=== PATIENT | male | born 1980 | race Caucasian/White ===

== ENCOUNTER 2016-11-11 07:29 | Day surgery (SDC) | payer MEDICAID, OTHER ==
[2016-11-11] MEDS ORDERED: LACTATED RINGERS 1,000 ML ONE (07:35)
[2016-11-11] MEDS ORDERED: IV START KIT ONE (07:35)
[2016-11-11] MEDS ORDERED: PROPOFOL 60 ML IV ONE (08:42)
[2016-11-11] MEDS ORDERED: LACTATED RINGERS 1,000 ML IV SCH (09:45)
== END 2016-11-11 10:00 | disposition home or self-care (01) ==
LOC: SDC 07:29
PROVIDERS: ATTEND Surgery
PROC: 0DJD8ZZ Inspection of Lower Intestinal Tract, Via Natural or Artificial Opening Endoscopic (ICD-10-PCS; principal; 2016-11-11)
DX: Z09 Encounter for follow-up examination after completed treatment for conditions other than malignant neoplasm (principal); Z87.19 Personal history of other diseases of the digestive system; Z79.82 Long term (current) use of aspirin; Z87.891 Personal history of nicotine dependence
CPT/HCPCS: 44388; J7120

== ENCOUNTER 2016-12-29 11:49 | Inpatient (IN) | payer OTHER ==
[~2016-12-29 11:49] MED LIST: ERTAPENEM SODIUM 1 G in NS 0.9% (MINI-BAG PLUS) 50 ML IV ONE; IV START KIT ONE; LACTATED RINGERS 1,000 ML ONE
[2016-12-29] MEDS ORDERED: FENTANYL 250 MCG/5 ML AMP ONE ×4 (12:47→17:13)
[2016-12-29] MEDS ORDERED: MIDAZOLAM HCL 1 MG/ML 2ML VIAL ONE (12:48)
[2016-12-29] MEDS ORDERED: LIDOCAINE 2% (MULTI DOSE) 10 ML VIAL ONE (14:08)
[2016-12-29] MEDS ORDERED: PROPOFOL 40 ML IV ONE (14:08)
[2016-12-29] MEDS ORDERED: ROCURONIUM BROMIDE 10 MG/ML DOSE IV ONE ×11 (14:08→19:09)
[2016-12-29] MEDS ORDERED: ONDANSETRON 4 MG/2ML 2 ML VIAL ONE ×2 (14:09→19:29)
[2016-12-29] MEDS ORDERED: DEXAMETHASONE SOD PHOS 4 MG/1 ML VIAL ONE (14:09)
[2016-12-29] MEDS ORDERED: PROMETHAZINE HCL 25 MG/ML VIAL ONE (14:15)
[2016-12-29] MEDS ORDERED: FENTANYL 100 MCG/2 ML VIAL IV PRN (14:29)
[2016-12-29] MEDS ORDERED: ONDANSETRON 4 MG/2ML 2 ML VIAL IV PRN (14:29)
[2016-12-29] MEDS ORDERED: PROMETHAZINE HCL 25 MG/ML VIAL IM PRN (14:29)
[2016-12-29] MEDS ORDERED: NALOXONE HCL 0.4 MG/ML VIAL IV PRN (14:29)
[2016-12-29] MEDS ORDERED: MEPERIDINE 25 MG/ML SYRINGE IV PRN (14:29)
[2016-12-29] MEDS ORDERED: HYDROMORPHONE HCL 1 MG/ML SYRINGE IV PRN (14:29)
[2016-12-29] MEDS ORDERED: ATROPINE SULFATE 0.4 MG/1 ML VIAL IV PRN (14:29)
[2016-12-29] MEDS ORDERED: LACTATED RINGERS 1,000 ML IV SCH (14:30)
[2016-12-29] MEDS ORDERED: BUPIVACAINE 0.5% W/EPI SDV 30 ML VIAL ONE (14:44)
[2016-12-29] MEDS ORDERED: KETAMINE HCL UD SYRINGE 100 MG/2 ML IV ONE (14:44)
[2016-12-29] MEDS ORDERED: HYDROMORPHONE HCL 2 MG/ML SYRINGE ONE ×2 (15:31→17:25)
[2016-12-29] MEDS ORDERED: NEOSTIGMINE METHYLSULFATE 1 MG/ML DOSE ONE (17:45)
[2016-12-29] MEDS ORDERED: GLYCOPYRROLATE 0.2 MG/ML 1ML VIAL ONE (17:45)
[2016-12-29] MEDS ORDERED: LACTATED RINGERS 1,000 ML ONE (20:18)
[2016-12-29] MEDS ORDERED: BLISTEX LIPSTICK 1 EACH TP PRN (21:11)
[2016-12-29] MEDS ORDERED: MENTHOL/CETYLPYRD 1 EACH LOZENGE PO PRN (21:11)
[2016-12-29] MEDS ORDERED: KETOROLAC TROMETHAMINE 30 MG/ML 1 ML VIAL IV PRN (21:11)
[2016-12-29 21:17] VITALS: BMI 38.2
[2016-12-29] MEDS ORDERED: PUMP TUBING ONE (23:00)
[2016-12-29] MEDS ORDERED: PCA ADMINISTRATION KIT ONE (23:07)
[2016-12-29] MEDS: LACTATED RINGERS 1,000 ML IV SCH (23:15)
[2016-12-29] MEDS: GABAPENTIN 600 MG TABLET PO SCH (23:15)
[2016-12-29] MEDS: HYDROMORPHONE PCA (MONOJECT) 12 MG/30 ML INJ.SOLN IV SCH (23:17)
[2016-12-29] MEDS: ACETAMINOPHEN 500 MG TABLET PO SCH (23:22)
[2016-12-29] MEDS: PANTOPRAZOLE 40 MG TABLET DR PO SCH (23:22)
[2016-12-29] MEDS ORDERED: EtCO2 Monitoring Set ONE (23:32)
[2016-12-30] MEDS: ACETAMINOPHEN 500 MG TABLET PO SCH ×4 (04:19→21:14)
[2016-12-30] MEDS: HYDROMORPHONE PCA (MONOJECT) 12 MG/30 ML INJ.SOLN IV SCH ×4 (05:57→22:58)
[2016-12-30 07:16] LABS: HEMATOCRIT 41.6 % (32.0-52.0); MEAN CELL VOLUME 90.4 fl (80.0-94.0); MEAN CORPUSCULAR HEMOGLOBIN 30.4 pg (27.0-31.0); MEAN CORPUSCULAR HGB CONC 33.7 g/dl (33.0-37.0); RED CELL DISTRIBUTION WIDTH 13.8 % (11.5-14.5)
[2016-12-30] MEDS: LACTATED RINGERS 1,000 ML IV SCH ×3 (07:38→19:29)
[2016-12-30] MEDS: GABAPENTIN 600 MG TABLET PO SCH ×3 (09:42→21:14)
[2016-12-30 09:45] LABS: I-STAT CREATININE 0.7 mg/dL (0.6-1.3)
[2016-12-30 13:19] LABS: ALB/GLOB RATIO 1.4 (>1.0); ALBUMIN 3.8 gm/dL (3.5-5.7)
[2016-12-30] MEDS: ENOXAPARIN SODIUM 40 MG/0.4 ML SYRINGE SUB-Q SCH ×2 (18:44→19:26)
--- NOTE | 2016-12-30 19:25 | PDOC43 ---
- Subjective Subjective: Reports Pain Tolerable, Denies Flatus, Denies Nausea - Objective Vital Signs Temperature 97.8 F 12/30/16 12:19 Pulse Rate 83 12/30/16 16:09 Respiratory Rate 15 12/30/16 16:09 Blood Pressure 119/83 12/30/16 16:09 O2 Saturation by Pulse Oximetry 92 12/30/16 16:09 Oxygen Delivery Method Nasal Cannula Oxygen Flow Rate 2 Laboratory 12/30/16 06:15 12/30/16 06:15 12/30/16 06:15 RBC 4.60 L Estimated GFR 128 H Active Medication Orders Category Date Time Status Acetaminophen [Tylenol] Med 12/29/16 21:11 Active 1,000 mg PO Q6H Enoxaparin Sodium [Lovenox] Med 12/30/16 17:39 Active 40 mg SUB-Q Q24H Gabapentin [Neurontin] Med 12/29/16 21:11 Active 600 mg PO TID Hydromorphone BMW SERVICE TECHNICIAN (Monoject) [Dilaudid [employer] SERVICE TECHNICIAN (Monoject)] Med 12/29/16 21:11 Active See Protocol IV PCA12 Ketorolac Tromethamine [Toradol] Med 12/29/16 21:11 Active 30 mg IV Q6H PRN Lactated Ringers 1,000 ml Med 12/30/16 19:22 Ordered IV 80 mls/hr Lip [place] [Blistex] Med 12/29/16 21:11 Active 1 each TP PRN PRN Menthol/Cetylpyridinium [Cepacol] Med 12/29/16 21:11 Active 1 each PO PRN PRN Pantoprazole Sodium [Protonix] Med 12/29/16 21:11 Active 40 mg PO Q24H Sodium Chloride 0.9% Flush [Normal Saline 10ml Flush] Med 12/29/16 21:11 Active 10 - 50 ml IV PRN PRN Sodium Chloride 0.9% Flush [Normal Saline 10ml Flush] Med 12/30/16 17:00 Active 10 ml IV Q8HR Intake and Output 12/29/16 12/30/16 12/31/16 06:59 06:59 06:59 Intake Total 888 25 Output Total 450 1600 Balance 438 -1575 General: Alert, Oriented x3 Abdomen: Soft, Non-Distended Wound: Dressing Clean/Dry/Intact - Assessment/ Plan (1) Diverticulitis of colon with perforation Status: AcuteAssessment/ Plan: Overall doing well. Start PO liquids. IS. Ambulate. SCDs and Lovenox to prevent DVT. Recheck lab in am.
[2016-12-30] MEDS: PANTOPRAZOLE 40 MG TABLET DR PO SCH (21:14)
[2016-12-31] MEDS: ACETAMINOPHEN 500 MG TABLET PO SCH ×4 (02:40→20:42)
[2016-12-31] MEDS: HYDROMORPHONE PCA (MONOJECT) 12 MG/30 ML INJ.SOLN IV SCH ×3 (06:09→18:27)
[2016-12-31 06:33] LABS: HEMATOCRIT 39.3 % (32.0-52.0); HEMOGLOBIN 12.6 gm/l (14.0-18.0); MEAN CORPUSCULAR HEMOGLOBIN 30.1 pg (27.0-31.0); MEAN CORPUSCULAR HGB CONC 32.1 g/dl (33.0-37.0)
[2016-12-31 06:36] LABS: CALCIUM 9.1 mg/dL (8.6-10.3)
--- NOTE | 2016-12-31 07:40 | OP ---
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 PROCEDURE: Laparoscopic adhesiolysis, open reversal of the Jacob's with resection of the colostomy and descending colon, mobilization of the splenic flexure, and transverse colo- rectal anastomosis. SURGEON: Efren Montenegro MD. ENVIRONMENTAL HEALTH TECHNICIAN: Uriah Burrows. ANESTHESIA: Rah Cantu, General endotracheal. INDICATIONS: This is a 36-year-old male who had complicated sigmoid diverticulitis with a colovesical fistula as well as a fistula to distal ileum. He underwent resection of the sigmoid colon with colostomy and Jacob's pouch. He also had an ileocecal resection with that. He has recovered well from that. He has been evaluated and felt able to proceed with take down of the Jacob's. DESCRIPTION: With informed consent he was taken to the operating room where he was laid supine on the operating room table. General endotracheal anesthetic was administered. The legs were placed in Yosi stirrups. A Lazo catheter was placed. His left sided colostomy was closed with a purse string of 0 Silk. The abdomen and perineal region were prepped and draped in a sterile fashion. Local anesthetic was administered around the colostomy. An elliptical incision was made in a transverse fashion. We dissected down to the serosal of the bowel and we dissected that down to the fascia. Eventually, I was able to get a finger into the abdominal cavity around the colostomy. I then divided attachments of omentum and some of the mesentery of the colon to the fascia. Eventually, had the colostomy completely freed. I was able to free adhesions of omentum circumferentially from the fascial defect. I allowed the closed colostomy to fall into the abdomen. I placed a Gomez port. There were adhesions of omentum to the anterior abdominal wall. It did look like we could potentially proceed laparoscopically. A 5 mm port was placed in the left lower quadrant. I ended up switching out the Gomez port for a multilumen gelport to which multiple ports were placed. We spent a moderate amount of time freeing adhesions of omentum to the anterior abdominal wall and also the pelvis. There were some small bowel loops adhesed into the pelvis that were carefully dissected free. Eventually, I was able to pull the entire small bowel up and out of the pelvis. We had fairly good visualization of the rectal stump with prior Prolene sutures in place. We could see where the left ureter was probably at underneath the scar tissue. I did not dissect into that area any further. There was a loop of small bowel that was adhesed inferior and medial to the descending colon. I spent a moderate amount of time attempting to free that. I mobilized the descending colon as much as possible up to near the splenic flexure. It was evident that the descending colon would not reach down to the pelvis without freeing up the entire splenic flexure. Attempts at doing this were hampered by the small bowel adhesions near the descending colon. It became evident that this was not going to be amendable to further laparoscopic procedure. I opened his prior midline laparotomy incision and extended that cephalad. Electrocautery was used to divide the subcutaneous fat and muscle fascia. The peritoneum was opened and extended along the length of the incision. An Omni was used to provide exposure. The prior gelport was removed. It was moderately difficult actually to free up the adhesions of small intestine near the descending colon. Eventually, I was able to do that without creating a serosal defect. One area that was adhesed was protected with a Z-stitch of some 3-0 Silk. With the small bowel completely mobilized I then entered into the lesser sac the greater omentum from the distal transverse colon. The omentum was actually adhesed up to the spleen. Using the Ligasure and some blunt dissection eventually I was able to dissect the entire splenic flexure down. Despite this, the descending colon still would not reach the pelvis. It appeared that there was some aberrant vascular supply with a fairly good arterial pulse in the mesentery almost directly to the splenic flexure. With the splenic flexure completely mobilized there were still some signs of inflammation in the lesser sac from the posterior aspect of the stomach up to the transverse medial colon. This was carefully dissected free taking care to avoid injury to the underlying pancreas. Eventually, it appeared that we would have better mobilization and a better chance of a good anastomosis with the distal transverse colon more so than the descending colon. I ended up using the Endo-KATHRYN to divide the blood vessels at the splenic flexure and resected some additional descending colon. In doing so, we have good laxity of the distal transverse colon to fall down into the pelvis. A purse string was placed. It appeared that the colon would accommodate a 31 EEA stapler. The anvil was placed in the proximal stump of the transverse colon. From below we carefully first used a dilator to elevate the rectal stump, that was removed and the stapler placed. We advanced the trocar out through the rectal stump. The proximal colon was brought down to the stapler with care taken to ensure that there was no significant tension, there was no twisting, and we made sure there was no pericolic fat in the anastomosis. The stapler was brought down to the appropriate level of tension and then fired. The stapler was removed. Our distal donut did not appear complete. The proximal donut was excellent. Again, there was no tension on the anastomosis and it looked like the defect would have been posteriorly. In inspecting the area with the scope there was no evidence of hole at the anastomosis. The proximal colon was clamped with a Rianna and the pelvis filled with fluid. We had no evidence of air leak. I did not feel it was needed to divert him proximally again. We made sure we had adequate hemostasis along the left lateral pelvis and along the abdominal wall and areas of adhesiolysis. There were some large defects in the omentum and this was closed with some 0 Vicryl sutures. The omentum was placed over the visceral structures extending down into the pelvis. The colostomy fascial defect was closed with interrupted 0 Nurolon's. His midline fascia was closed with Looped 0 PDS. Intermittent internal retention sutures of 0 Vicryl were also placed. All wounds were vigorously irrigated. Wounds were closed with jayro. A Prevena wound VAC was placed. Abdominal binders were applied. He was hemodynamically stable during the procedure. Was taken to the recovery room in stable condition. Note was made that needle, instrument, and lap counts were reported as correct at time of closure. Blood loss was estimated at 600 mL. JOB: [id number]
[2016-12-31] MEDS: LACTATED RINGERS 1,000 ML IV SCH ×3 (08:25→23:47)
[2016-12-31] MEDS: GABAPENTIN 600 MG TABLET PO SCH ×3 (08:36→20:42)
--- NOTE | 2016-12-31 17:07 | PDOC43 ---
- Subjective Subjective: Reports Pain Tolerable, Denies Flatus, Denies Nausea - Objective Vital Signs Temperature 99.3 F 12/31/16 15:14 Pulse Rate 936 12/31/16 15:14 Respiratory Rate 18 12/31/16 15:14 Blood Pressure 124/82 12/31/16 15:14 O2 Saturation by Pulse Oximetry 92 12/31/16 15:14 Oxygen Delivery Method Room Air Oxygen Flow Rate 0 Laboratory 12/31/16 05:30 12/31/16 05:30 12/31/16 05:30 RBC 4.18 L MCHC 32.1 L Estimated GFR 153 H Active Medication Orders Category Date Time Status Acetaminophen [Tylenol] Med 12/29/16 21:11 Active 1,000 mg PO Q6H Enoxaparin Sodium [Lovenox] Med 12/30/16 17:39 Active 40 mg SUB-Q Q24H Gabapentin [Neurontin] Med 12/29/16 21:11 Active 600 mg PO TID Hydromorphone REGIONAL AIRLINE PILOT (Monoject) [Dilaudid REGIONAL AIRLINE PILOT (Monoject)] Med 12/29/16 21:11 Active See Protocol IV PCA12 Ketorolac Tromethamine [Toradol] Med 12/29/16 21:11 Active 30 mg IV Q6H PRN Lactated Ringers 1,000 ml Med 12/30/16 19:22 Active IV 80 mls/hr Lip [place] [Blistex] Med 12/29/16 21:11 Active 1 each TP PRN PRN Magnesium/Al Hydrox/Simeth [Maalox Plus] Med 12/31/16 16:52 Active 30 ml PO Q6H PRN Menthol/Cetylpyridinium [Cepacol] Med 12/29/16 21:11 Active 1 each PO PRN PRN Pantoprazole Sodium [Protonix] Med 12/29/16 21:11 Active 40 mg PO Q24H Sodium Chloride 0.9% Flush [Normal Saline 10ml Flush] Med 12/29/16 21:11 Active 10 - 50 ml IV PRN PRN Sodium Chloride 0.9% Flush [Normal Saline 10ml Flush] Med 12/30/16 17:00 Active 10 ml IV Q8HR Intake and Output 12/30/16 12/31/16 01/01/17 06:59 06:59 06:59 Intake Total 888 175 Output Total 450 2350 Balance 438 -2175 General: Alert, Oriented x3 Abdomen: Soft, Non-Distended Wound: Dressing Clean/Dry/Intact Psych/Mental Status: Normal Affect - Assessment/ Plan (1) Diverticulitis of colon with perforation Status: AcuteAssessment/ Plan: Overall doing well. Continue liquids. IS. Ambulate. SCDs and Lovenox to prevent DVT. Recheck lab in am. GOSIA mckeon.
[2016-12-31] MEDS: ENOXAPARIN SODIUM 40 MG/0.4 ML SYRINGE SUB-Q SCH (18:26)
[2016-12-31] MEDS: MAG HYDROX/AL HYDROX/SIMETH 30 ML UDCUP PO PRN (18:27)
[2016-12-31] MEDS: PANTOPRAZOLE 40 MG TABLET DR PO SCH (20:41)
[2017-01-01] MEDS: ACETAMINOPHEN 500 MG TABLET PO SCH ×4 (03:15→20:25)
[2017-01-01] MEDS: HYDROMORPHONE PCA (MONOJECT) 12 MG/30 ML INJ.SOLN IV SCH ×2 (05:45→10:47)
[2017-01-01] MEDS: MAG HYDROX/AL HYDROX/SIMETH 30 ML UDCUP PO PRN (05:53)
[2017-01-01 06:55] LABS: HEMATOCRIT 35.4 % (32.0-52.0); HEMOGLOBIN 11.8 gm/l (14.0-18.0); MEAN CELL VOLUME 92.7 fl (80.0-94.0); MEAN CORPUSCULAR HEMOGLOBIN 30.9 pg (27.0-31.0); MEAN CORPUSCULAR HGB CONC 33.3 g/dl (33.0-37.0); RED CELL DISTRIBUTION WIDTH 13.4 % (11.5-14.5)
[2017-01-01 07:16] LABS: CALCIUM 9.1 mg/dL (8.6-10.3)
[2017-01-01] MEDS: LACTATED RINGERS 1,000 ML IV SCH ×2 (08:08→12:06)
--- NOTE | 2017-01-01 08:33 | PDOC43 ---
- Subjective Subjective: Reports Pain Tolerable, Denies Flatus, Denies Bloating, Denies Nausea - Objective Vital Signs Temperature 97.7 F 01/01/17 07:32 Pulse Rate 90 01/01/17 07:32 Respiratory Rate 16 01/01/17 07:32 Blood Pressure 142/96 01/01/17 07:32 O2 Saturation by Pulse Oximetry 92 01/01/17 07:32 Oxygen Delivery Method Room Air Oxygen Flow Rate 0 Laboratory 01/01/17 06:10 01/01/17 06:10 01/01/17 06:10 RBC 3.82 L Estimated GFR 189 H Active Medication Orders Category Date Time Status Acetaminophen [Tylenol] Med 12/29/16 21:11 Active 1,000 mg PO Q6H Enoxaparin Sodium [Lovenox] Med 12/30/16 17:39 Active 40 mg SUB-Q Q24H Gabapentin [Neurontin] Med 12/29/16 21:11 Active 600 mg PO TID Hydromorphone LITHODUPLICATOR OPERATOR (Monoject) [Dilaudid LITHODUPLICATOR OPERATOR (Monoject)] Med 12/29/16 21:11 Active See Protocol IV PCA12 Ketorolac Tromethamine [Toradol] Med 12/29/16 21:11 Active 30 mg IV Q6H PRN Lactated Ringers 1,000 ml Med 12/30/16 19:22 Active IV 80 mls/hr Lip [place] [Blistex] Med 12/29/16 21:11 Active 1 each TP PRN PRN Magnesium/Al Hydrox/Simeth [Maalox Plus] Med 12/31/16 16:52 Active 30 ml PO Q6H PRN Menthol/Cetylpyridinium [Cepacol] Med 12/29/16 21:11 Active 1 each PO PRN PRN Pantoprazole Sodium [Protonix] Med 12/29/16 21:11 Active 40 mg PO Q24H Sodium Chloride 0.9% Flush [Normal Saline 10ml Flush] Med 12/29/16 21:11 Active 10 - 50 ml IV PRN PRN Sodium Chloride 0.9% Flush [Normal Saline 10ml Flush] Med 12/30/16 17:00 Active 10 ml IV Q8HR Intake and Output 12/31/16 01/01/17 01/02/17 06:59 06:59 06:59 Intake Total 175 2546 Output Total 2350 1850 Balance -2172 696 General: Alert, Oriented x3 Abdomen: Soft, Non-Distended Wound: Dressing Clean/Dry/Intact, Well Approximated, No Erythema - Assessment/ Plan (1) Diverticulitis of colon with perforation Status: AcuteAssessment/ Plan: Overall doing well. Continue liquids. IS. Ambulate. SCDs and Lovenox to prevent DVT. Recheck lab in am.
[2017-01-01] MEDS: GABAPENTIN 600 MG TABLET PO SCH ×3 (10:47→20:25)
[2017-01-01] MEDS ORDERED: PUMP TUBING ONE (12:03)
[2017-01-01] MEDS ORDERED: PCA ADMINISTRATION KIT ONE (12:03)
--- NOTE | 2017-01-01 13:16 | SURGPATH ---
[facility] [address] [place] [id number] Patient Name: EDMUNDO WEST MR#: [id number] : 1980 Gender: M Specimen #: [id number] Collected: 12/29/2016 Received: 12/31/2016 Reported: 01/01/2017 Submitting Phys: TANISHA SHAFFER Copy To Phys: BRADY WERNER [facility] Clinical History / Pre-Operative Diagnosis: Colostomy; status post diverticulitis with perforation and abscess Specimen Source / Surgical Procedure Performed: Colostomy, descending colon Interpretation: COLOSTOMY AND SEGMENTAL COLONIC RESECTION: - CHRONICALLY INFLAMED MUCOCUTANEOUS JUNCTION - FIBROUS PERITONEAL ADHESIONS - NEGATIVE FOR DIVERTICULA OR MALIGNANCY Electronically Signed Out Redd Key M.D. Gross Description: The specimen is received in a formalin filled container labeled with the patient's name and "colostomy, descending colon". An unoriented segment of large bowel is 14 cm in length and has an external diameter which averages 2.5-3 cm. The serosa has fibrous adhesions in the pericolic fat averages 2 cm. The bowel is opened to reveal a patent lumen. The mucosa is sneed and unremarkable. There is no polyp, mass or ulceration. Cross sectioning reveals no diverticula. Separate in the specimen container is a 7.0 x 4.5 x 3 cm colostomy specimen partially covered by 3.0 x 1.7 cm ellipse of unremarkable sneed skin with a central suture patent stoma. The underlying bowel mucosa is without polyp, mass orulceration. unremarkable anastomotic ringlets each 2.0 x 1.5 x 0.6 cm. A-two sections of mucocutaneous junction B-anastomotic ringlets C and D-business center representative sections of large bowel Naida Dubon Microscopic Description: The mucocutaneous junction shows chronic inflammation. The anastomotic relates are unremarkable. The colonic serosa shows fibrous adhesions. The mucosa is unremarkable. 1: [id number] K57.30
[2017-01-01] MEDS: ENOXAPARIN SODIUM 40 MG/0.4 ML SYRINGE SUB-Q SCH (16:56)
[2017-01-01] MEDS: PANTOPRAZOLE 40 MG TABLET DR PO SCH (20:25)
[2017-01-02] MEDS: LACTATED RINGERS 1,000 ML IV SCH (00:50)
[2017-01-02] MEDS: HYDROMORPHONE PCA (MONOJECT) 12 MG/30 ML INJ.SOLN IV SCH ×2 (01:21→06:35)
[2017-01-02] MEDS: ACETAMINOPHEN 500 MG TABLET PO SCH ×4 (06:06→22:07)
[2017-01-02 07:37] LABS: HEMATOCRIT 34.5 % (32.0-52.0); HEMOGLOBIN 11.7 gm/l (14.0-18.0); MEAN CELL VOLUME 90.6 fl (80.0-94.0); MEAN CORPUSCULAR HEMOGLOBIN 30.7 pg (27.0-31.0); MEAN CORPUSCULAR HGB CONC 33.9 g/dl (33.0-37.0); RED CELL DISTRIBUTION WIDTH 13.1 % (11.5-14.5)
[2017-01-02] MEDS: GABAPENTIN 600 MG TABLET PO SCH ×3 (08:55→22:07)
[2017-01-02] MEDS ORDERED: HYDROMORPHONE HCL 1 MG/ML SYRINGE IV PRN (09:30)
[2017-01-02] MEDS ORDERED: HYDROMORPHONE HCL 2 MG/ML SYRINGE IV PRN (09:43)
[2017-01-02] MEDS ORDERED: POTASSIUM CHLORIDE 20 MEQ TAB.PRT.SR PO ONE (09:59)
--- NOTE | 2017-01-02 10:01 | PDOC43 ---
- Subjective Subjective: Reports Flatus, Reports Pain Tolerable, Reports Bowel Movement, Denies Nausea - Objective Vital Signs Temperature 98.7 F 01/02/17 07:25 Pulse Rate 92 01/02/17 07:25 Respiratory Rate 18 01/02/17 07:25 Blood Pressure 155/100 01/02/17 07:25 O2 Saturation by Pulse Oximetry 94 01/02/17 07:25 Oxygen Delivery Method Room Air Oxygen Flow Rate 0 Laboratory 01/02/17 06:54 01/02/17 06:54 01/02/17 06:54 RBC 3.81 L Estimated GFR 189 H Active Medication Orders Category Date Time Status Acetaminophen [Tylenol] Med 12/29/16 21:11 Active 1,000 mg PO Q6H Enoxaparin Sodium [Lovenox] Med 12/30/16 17:39 Active 40 mg SUB-Q Q24H Gabapentin [Neurontin] Med 12/29/16 21:11 Active 600 mg PO TID Hydromorphone HCl [Dilaudid] Med 01/02/17 09:30 Active 1 - 2 mg IV Q2H PRN Hydromorphone HCl [Dilaudid] Med 01/02/17 09:43 Active 1 - 2 mg IV Q2H PRN Lip [place] [Blistex] Med 12/29/16 21:11 Active 1 each TP PRN PRN Magnesium/Al Hydrox/Simeth [Maalox Plus] Med 12/31/16 16:52 Active 30 ml PO Q6H PRN Menthol/Cetylpyridinium [Cepacol] Med 12/29/16 21:11 Active 1 each PO PRN PRN Oxycodone HCl [Roxicodone] Med 01/02/17 09:30 Active 5 - 10 mg PO Q4H PRN Pantoprazole Sodium [Protonix] Med 12/29/16 21:11 Active 40 mg PO Q24H Potassium Chloride [K-Dur] Med 01/02/17 09:59 Once 40 meq PO X1 ONE Sodium Chloride 0.9% Flush [Normal Saline 10ml Flush] Med 12/29/16 21:11 Active 10 - 50 ml IV PRN PRN Sodium Chloride 0.9% Flush [Normal Saline 10ml Flush] Med 12/30/16 17:00 Active 10 ml IV Q8HR Intake and Output 0401/02/17 01/03/17 06:59 06:59 06:59 Intake Total 4556 3322 Output Total 1850 Balance 696 3322 General: Alert, Oriented x3 Abdomen: Soft, Non-Distended Wound: Well Approximated, No Erythema Psych/Mental Status: Normal Affect - Assessment/ Plan (1) Diverticulitis of colon with perforation Status: AcuteAssessment/ Plan: Overall doing well. Advance diet. Stop PCSA/IVF. IS. Ambulate. SCDs and Lovenox to prevent DVT.
[2017-01-02] MEDS: OXYCODONE HCL 5 MG TABLET PO PRN (13:51)
[2017-01-02] MEDS: ENOXAPARIN SODIUM 40 MG/0.4 ML SYRINGE SUB-Q SCH (18:32)
[2017-01-02] MEDS: PANTOPRAZOLE 40 MG TABLET DR PO SCH (22:07)
[2017-01-03] MEDS: OXYCODONE HCL 5 MG TABLET PO PRN ×2 (05:20→10:49)
[2017-01-03] MEDS: ACETAMINOPHEN 500 MG TABLET PO SCH ×2 (05:50→08:35)
[2017-01-03 07:14] VITALS: BP 142/98
[2017-01-03] MEDS: GABAPENTIN 600 MG TABLET PO SCH (08:35)
== END 2017-01-03 11:00 | disposition home or self-care (01) | DRG 331 ==
LOC: OR 11:49 → EDSTATUS 11:51 → MS 21:30
PROVIDERS: ADMIT Surgery; ATTEND Surgery
PROC: 0DSL4ZZ Reposition Transverse Colon, Percutaneous Endoscopic Approach (ICD-10-PCS; principal; 2016-12-29)
PROC: 0DQM0ZZ Repair Descending Colon, Open Approach (ICD-10-PCS; 2016-12-29)
PROC: 0DSM4ZZ Reposition Descending Colon, Percutaneous Endoscopic Approach (ICD-10-PCS; 2016-12-29)
PROC: 0DQL0ZZ Repair Transverse Colon, Open Approach (ICD-10-PCS; 2016-12-29)
PROC: 0DNS0ZZ (ICD-10-PCS; 2016-12-29)
DX: K57.32 Diverticulitis of large intestine without perforation or abscess without bleeding (principal); K66.0 Peritoneal adhesions (postprocedural) (postinfection); Z43.3 Encounter for attention to colostomy; E66.9 Obesity, unspecified; K21.9 Gastro-esophageal reflux disease without esophagitis